=== PATIENT | male | born 1995 | race Caucasian/White ===

== ENCOUNTER 2021-04-04 21:59 | Emergency (ER) | payer SELFPAY ==
--- NOTE | 2021-04-04 22:22 | EDM.PDOC ---
ED HPI GENERAL MEDICAL PROBLEM - General Chief Complaint: ENT Problem Stated Complaint: SORE THROAT, LOOSING VOICE Time Seen by Provider: 04/04/21 22:13 Source of Information: Reports: Patient History Limitations: Reports: No Limitations - History of Present Illness INITIAL COMMENTS - FREE TEXT/NARRATIVE: Patient is a 25-year-old male presents today for sore throat. Pain states for the past few days as those been increasing in pain is not radiating but made worse with coughing or eating. Patient denies any fever chills nausea or vomiting. Throat Pain Score (Numeric/FACES): 4 - Related Data Allergies Allergy/AdvReac Type Severity Reaction Status Date / Time No Known Allergies Allergy Verified 04/04/21 22:20 Home Meds: Home Meds . [No Known Home Meds] 04/04/21 [History] ED ROS ENT - Review of Systems Review Of Systems: See Below Constitutional: Reports: No Symptoms HEENT: Reports: Throat Pain Respiratory: Reports: No Symptoms Endocrine: Reports: No Symptoms GI/Abdominal: Reports: No Symptoms : Reports: No Symptoms Musculoskeletal: Reports: No Symptoms Skin: Reports: No Symptoms Neurological: Reports: No Symptoms Psychiatric: Reports: No Symptoms Hematologic/Lymphatic: Reports: No Symptoms Immunologic: Reports: No Symptoms ED EXAM, ENT - Physical Exam Exam: See Below Exam Limited By: No Limitations General Appearance: Alert, WD/WN, No Apparent Distress Mouth/Throat: Throat Pain Respiratory/Chest: No Respiratory Distress, Lungs Clear, Normal Breath Sounds Cardiovascular: Normal Peripheral Pulses, Regular Rate, Rhythm GI/Abdominal: Normal Bowel Sounds, Soft, Non-Tender Extremities: Normal Inspection, Normal Range of Motion Neurological: Alert, Oriented, Normal Cognition, Normal Gait Course - Vital Signs Last Recorded V/S: Last Vital Signs Temp 97.6 F 04/04/21 22:17 Pulse 86 04/04/21 22:17 Resp 14 04/04/21 22:17 BP 146/96 H 04/04/21 22:17 Pulse Ox 97 04/04/21 22:17 - Orders/Labs/Meds Labs: Laboratory Tests 04/04/21 Range/Units 22:25 Group A Strep (PCR) NOT DETECTED (NOT DETECT) Meds: Medications Discontinued Medications Generic Name Dose Route Start Last Admin Trade Name Freq PRN Reason Stop Dose Admin Dexamethasone 10 mg 04/04/21 22:42 04/04/21 22:56 Dexamethasone Solution 0.5 Mg/5 Ml PO 04/04/21 22:43 Not Given NOW STA Dexamethasone 10 mg 04/04/21 22:52 04/04/21 22:56 Dexamethasone 10 Mg/Ml Sdv PO 04/04/21 22:53 10 mg ONETIME ONE Administration Dexamethasone Confirm 04/04/21 22:51 04/04/21 22:56 Dexamethasone 10 Mg/Ml Sdv Administered 04/04/21 22:52 Not Given Dose 10 mg .ROUTE .STK-MED ONE - Re-Assessments/Exams Free Text/Narrative Re-Assessment/Exam: 04/04/21 23:29 Patient strep is negative stable for discharge home. Departure - Departure Time of Disposition: 23:29 Disposition: Home, Self-Care 01 Condition: Good Clinical Impression: Sore throat - Discharge Information *PRESCRIPTION DRUG MONITORING PROGRAM REVIEWED*: Not Applicable *COPY OF PRESCRIPTION DRUG MONITORING REPORT IN PATIENT [facility]: Not Applicable Instructions: Sore Throat, [id number] Referrals: PCP,None [Primary Care Provider] - Forms: ED Department Discharge Additional Instructions: The following information is given to patients seen in the emergency department who are being discharged to home. This information is to outline your options for follow-up care. We provide all patients seen in our emergency department with a follow-up referral. The need for follow-up, as well as the timing and circumstances, are variable depending upon the specifics of your emergency department visit. If you don't have a primary care physician on staff, we will provide you with a referral. We always advise you to contact your personal physician following an emergency department visit to inform them of the circumstance of the visit and for follow-up with them and/or the need for any referrals to a consulting sp ecialist. The emergency department will also refer you to a specialist when appropriate. This referral assures that you have the opportunity for follow-up care with a specialist. All of these measure are taken in an effort to provide you with optimal care, which includes your follow-up. Under all circumstances we always encourage you to contact your private physician who remains a resource for coordinating your care. When calling for follow-up care, please make the office aware that this follow-up is from your recent emergency room visit. If for any reason you are refused follow-up, please contact the [facility] Emergency Department at and asked to speak to the emergency department charge nurse. Please follow up with your primary care physician. If you do not have a primary care physician, see below: [facility] [address] [place] [id number] [facility] [address] [place] [address] You are seen today for sore throat we did a rapid strep that was negative. We gave you Decadron helps out the swelling and pain for your throat. If you have any other concerning signs or symptoms please return to the ED. Sepsis Event Note (ED) - Evaluation Sepsis Screening Result: No Definite Risk - Focused Exam Vital Signs: Vital Signs Temp Pulse Resp BP Pulse Ox 04/04/21 22:17 97.6 F 86 14 146/96 H 97 - Assessment/Plan Plan: Patient is a 25-year-old male presents today for sore throat. Will obtain strep throat provided Toradol and Decadron.
[2021-04-04] MEDS ORDERED: Dexamethasone 10 MG/ML SDV ONE (22:51)
[2021-04-04] MEDS ORDERED: Dexamethasone 10 MG/ML SDV PO ONE (22:52)
== END 2021-04-04 23:40 | disposition home or self-care (01) ==
LOC: MW.ED 21:59
DX: J02.9 Acute pharyngitis, unspecified (principal)
CPT/HCPCS: 87651; 99283; J1100; 99282

== ENCOUNTER 2022-05-03 21:21 | Emergency (ER) | payer MEDICAID ==
[2022-05-03] MEDS ORDERED: Sodium Chloride 0.9% 2.5 ML Syringe FLUSH PRN (21:57)
[2022-05-03] MEDS ORDERED: Ondansetron 4 MG/2 ML SDV IVPUSH ONE (21:57)
[2022-05-03] MEDS ORDERED: Lactated Ringers 1,000 ML IV ONE (21:57)
[2022-05-03] MEDS ORDERED: Sodium Chloride 0.9% 10 ML Syringe FLUSH PRN (21:57)
[2022-05-03] MEDS ORDERED: Ketorolac 30 MG/ML SDV IVPUSH ONE (21:58)
[2022-05-03 22:39] LABS: CARBON DIOXIDE,CO2 30.1 mmol/L (21.0-32.0); POTASSIUM,K 4.4 mmol/L (3.5-5.1)
[2022-05-03 22:53] LABS: CORONAVIRUS COVID-19 NAA NEGATIVE (NEGATIVE); INFLUENZA A NAA NEGATIVE (NEGATIVE); INFLUENZA B NAA NEGATIVE (NEGATIVE)
== END 2022-05-03 23:23 | disposition home or self-care (01) ==
LOC: MW.ED 21:21
DX: B34.9 Viral infection, unspecified (principal); Z20.822 Contact with and (suspected) exposure to COVID-19
CPT/HCPCS: 0240U; 36415; 71045; 80053; 85025; 96361; 96374; 96375; 99284; J1885; J2405; J3490; J7120

== ENCOUNTER 2022-05-14 10:01 | Emergency (ER) | payer MEDICAID | END 2022-05-14 12:01 | disposition home or self-care (01) | LOC: MW.ED 10:01 | DX: S67.21XA Crushing injury of right hand, initial encounter (principal); Z91.018 Allergy to other foods; Z86.16 Personal history of COVID-19; W22.09XA Striking against other stationary object, initial encounter; Y92.59 Other trade areas as the place of occurrence of the external cause | CPT/HCPCS: 29125; 73130-26-RT; 73130-RT; 99283 ==

== ENCOUNTER 2022-08-13 03:06 | Emergency (ER) | payer MEDICAID ==
[2022-08-13 04:10] LABS: CORONAVIRUS COVID-19 NAA NEGATIVE (NEGATIVE); INFLUENZA A NAA NEGATIVE (NEGATIVE); INFLUENZA B NAA NEGATIVE (NEGATIVE); RESPIRATORY SYNCYTIAL VIR NAA NEGATIVE (NEGATIVE)
== END 2022-08-13 04:23 | disposition home or self-care (01) ==
LOC: MW.ED 03:06
DX: J06.9 Acute upper respiratory infection, unspecified (principal); B34.9 Viral infection, unspecified; Z20.822 Contact with and (suspected) exposure to COVID-19; Z91.018 Allergy to other foods
CPT/HCPCS: 0241U; 99283

== ENCOUNTER 2022-08-16 16:20 | Emergency (ER) | payer MEDICAID ==
[2022-08-16 17:43] LABS: CORONAVIRUS COVID-19 NAA NEGATIVE (NEGATIVE); INFLUENZA A NAA NEGATIVE (NEGATIVE); INFLUENZA B NAA NEGATIVE (NEGATIVE)
== END 2022-08-16 18:37 | disposition home or self-care (01) ==
LOC: MW.ED 16:20
DX: R05.9 Cough, unspecified (principal); R09.89 Other specified symptoms and signs involving the circulatory and respiratory systems; B34.9 Viral infection, unspecified; Z20.822 Contact with and (suspected) exposure to COVID-19
CPT/HCPCS: 0240U; 71045; 99285; 93010; 99282

== ENCOUNTER 2022-10-05 22:00 | Emergency (ER) | payer MEDICAID ==
[2022-10-05] MEDS ORDERED: Acetaminophen 500 MG Tab PO ONE (22:05)
[2022-10-05 23:05] LABS: CORONAVIRUS COVID-19 NAA NEGATIVE (NEGATIVE); INFLUENZA A NAA NEGATIVE (NEGATIVE); INFLUENZA B NAA NEGATIVE (NEGATIVE); RESPIRATORY SYNCYTIAL VIR NAA NEGATIVE (NEGATIVE)
== END 2022-10-06 00:10 | disposition home or self-care (01) ==
LOC: MW.ED 22:00
DX: J06.9 Acute upper respiratory infection, unspecified (principal); F17.210 Nicotine dependence, cigarettes, uncomplicated; Z91.018 Allergy to other foods; Z88.8 Allergy status to other drugs, medicaments and biological substances; Z86.16 Personal history of COVID-19; Z20.822 Contact with and (suspected) exposure to COVID-19
CPT/HCPCS: 0241U; 99283; A9270

== ENCOUNTER 2023-01-11 16:47 | Emergency (ER) | payer MEDICAID ==
[2023-01-11] MEDS ORDERED: Ondansetron 4 MG/2 ML SDV IVPUSH STA (18:58)
[2023-01-11] MEDS ORDERED: Sodium Chloride 0.9% 1,000 ML IV STA (18:58)
[2023-01-11] MEDS ORDERED: Sodium Chloride 0.9% 10 ML Syringe FLUSH PRN (18:58)
[2023-01-11] MEDS ORDERED: Sodium Chloride 0.9% 2.5 ML Syringe FLUSH PRN (18:58)
[2023-01-11 19:17] LABS: CORONAVIRUS COVID-19 NAA NEGATIVE (NEGATIVE); INFLUENZA A NAA NEGATIVE (NEGATIVE); INFLUENZA B NAA NEGATIVE (NEGATIVE)
[2023-01-11 20:01] LABS: BLOOD UREA NITROGEN,BUN 9 mg/dL (7.0-18.0); CARBON DIOXIDE,CO2 28.8 mmol/L (21.0-32.0); CHLORIDE,CL 104 mmol/L (98-107); GLUCOSE RANDOM 91 mg/dL (74-106); POTASSIUM,K 4.4 mmol/L (3.5-5.1); SODIUM,NA 140 mmol/L (136-148)
[2023-01-11 20:04] LABS: ESTIMATED GFR 121 mL/min (>60)
== END 2023-01-11 20:34 | disposition home or self-care (01) ==
LOC: MW.ED 16:47
DX: A08.4 Viral intestinal infection, unspecified (principal); N30.00 Acute cystitis without hematuria; Z91.018 Allergy to other foods; Z88.8 Allergy status to other drugs, medicaments and biological substances; Z86.16 Personal history of COVID-19; Z72.0 Tobacco use; Z20.822 Contact with and (suspected) exposure to COVID-19
CPT/HCPCS: 0240U; 36415; 80053; 81001; 85025; 87086; 87651; 96361; 96374; 99284; J2405; J3490; J7030

== ENCOUNTER 2023-04-14 19:03 | Emergency (ER) | payer MEDICAID ==
[2023-04-14] MEDS ORDERED: Diphtheria,Pertussis(Acell),Tetanus Vaccine 0.5 ML Syringe IM ONE (21:00)
[2023-04-14] MEDS ORDERED: Lidocaine 1% PF 2 ML SDV INJECT ONE (21:00)
== END 2023-04-14 21:45 | disposition home or self-care (01) ==
LOC: MW.ED 19:03
DX: S61.215A Laceration without foreign body of left ring finger without damage to nail, initial encounter (principal); J45.909 Unspecified asthma, uncomplicated; Z86.16 Personal history of COVID-19; Z91.048 Other nonmedicinal substance allergy status; Z91.018 Allergy to other foods; Z23 Encounter for immunization; W26.0XXA Contact with knife, initial encounter
CPT/HCPCS: 12001; 90471; 90715; 99282-25; J3490

== ENCOUNTER 2023-04-25 16:29 | Emergency (ER) | payer MEDICAID | END 2023-04-25 17:20 | disposition home or self-care (01) | LOC: MW.ED 16:29 | DX: Z53.21 Procedure and treatment not carried out due to patient leaving prior to being seen by health care provider (principal) | CPT/HCPCS: 99281 ==